=== PATIENT | female | born 1985 | race Native Hawaiian/Other Pacific Islander ===

== ENCOUNTER 2017-05-18 14:53 | Emergency (ER) | payer SELFPAY ==
[~2017-05-18] VITALS: Ht 152.4 cm; Wt 81.6 kg
[2017-05-18 15:17] VITALS: BP 134/85
== END 2017-05-18 18:57 | disposition left against medical advice (07) ==
LOC: ER 14:53
DX: R07.89 Other chest pain (principal); Z53.21 Procedure and treatment not carried out due to patient leaving prior to being seen by health care provider; V49.59XA Passenger injured in collision with other motor vehicles in traffic accident, initial encounter; Y93.89 Activity, other specified; Y99.8 Other external cause status; Y92.410 Unspecified street and highway as the place of occurrence of the external cause